=== PATIENT | female | born 1970 | race Caucasian/White ===

== ENCOUNTER 2019-04-08 00:43 | Emergency (ER) | payer MEDICAID, OTHER, SELFPAY ==
[~2019-04-08] VITALS: Ht 162.6 cm; Wt 58.0 kg
[2019-04-08] MEDS ORDERED: MORPHINE SULFATE 4 MG/ML, 1ML ONE (00:58)
[2019-04-08] MEDS ORDERED: ONDANSETRON 2MG/ML, 2ML IVPush ONE (01:00)
[2019-04-08] MEDS ORDERED: MORPHINE SULFATE 4 MG/ML, 1ML IVPush PRN (01:00)
[2019-04-08] MEDS ORDERED: ONDANSETRON 2MG/ML, 2ML ONE (01:05)
--- NOTE | 2019-04-08 01:19 | NUR ---
Break RN: patient medicated for pain and nausea. unable to get EKG and X ray at this time.
[2019-04-08 01:23] LABS: BASOPHILS # (AUTO) 0.14 x10^3/uL (0-0.1); BASOPHILS % (AUTO) 2 % (0-1); EOSINOPHILS # (AUTO) 0.37 x10^3/uL (0-0.4); EOSINOPHILS % (AUTO) 5 % (1-7); LYMPHOCYTES % (AUTO) 42 % (22-44); MD NO; MEAN CORPUSCULAR HEMOGLOBIN 30.4 pg (27.0-34.8); MEAN CORPUSCULAR HGB CONC 32.3 g/dL (32.4-35.8); MEAN CORPUSCULAR VOLUME 94.1 fL (80-100); MONOCYTES # (AUTO) 0.85 x10^3/uL (0.2-0.8); MONOCYTES % (AUTO) 10 % (2-9); NEUTROPHILS # (AUTO) 3.46 x10^3/uL (1.8-6.8); NEUTROPHILS % (AUTO) 42 % (42-75); PLATELET COUNT 310 x10^3/uL (130-400); RED BLOOD COUNT 3.86 x10^6/uL (3.82-5.3); RED CELL DISTRIBUTION WIDTH 16.6 % (9.6-15.2)
[2019-04-08] MEDS ORDERED: LORazepam 2 MG/ML, 1ML ONE (01:25)
[2019-04-08 01:29] LABS: ALBUMIN 3.4 g/dL (3.4-5.0); ANION GAP 7 mmol/L (5-15); CALCIUM 8.2 mg/dL (8.5-10.1); CHLORIDE 104 mmol/L (98-107); SALICYLATE LEVEL < 1.7 mg/dL (2.8-20.0)
[2019-04-08] MEDS ORDERED: PLEASE ENTER ALLERGIES MC SCH (01:30)
[2019-04-08] MEDS ORDERED: LORazepam 2 MG/ML, 1ML IVPush ONE (01:30)
--- NOTE | 2019-04-08 01:30 | NUR ---
patient medicated for agitation. x ray done. attempted to get EKG unsuccessful.
[2019-04-08 01:35] LABS: ALANINE AMINOTRANSFERASE 26 U/L (12-78); ALKALINE PHOSPHATASE 51 U/L (45-117); BILIRUBIN,TOTAL 0.4 mg/dL (0.2-1.0); TOTAL PROTEIN 7.3 g/dL (6.4-8.2)
--- NOTE | 2019-04-08 03:00 | NUR ---
PT PROVIDED 2 BLANKET AND OFFERED WATER. PT RESTING IN BED WITH TV ON.
[2019-04-08 04:06] LABS: AMPHETAMINE SCREEN, URINE Negative (Negative); BARBITURATE SCREEN, URINE Negative (Negative); BENZODIAZEPINE SCREEN, URINE Negative (Negative); CANNABINOID SCREEN, URINE Negative (Negative); COCAINE SCREEN, URINE Negative (Negative); METHADONE SCREEN, URINE Negative (Negative); OPIATE SCREEN, URINE Positive (Negative)
--- NOTE | 2019-04-08 04:47 | NUR ---
PT BOYFRIEND CALLED FOR PT PICKUP SO PT CAN GO HOME AND GET INTO THE HOME AT PT REQUEST, CALL WENT STRAIGHT TO VOICE MAIL. RN LEFT A MESSAGE FOR BOYFRIEND TO COME BACK TO ER OR CALL ER.
[2019-04-08 06:29] VITALS: BP 120/74
== END 2019-04-08 06:31 | disposition home or self-care (01) ==
LOC: ED 04:51
DX: F11.23 Opioid dependence with withdrawal (principal)
CPT/HCPCS: 36415; 71045; 80053; 80307; 84703; 85025; 93005; 96374; 96375; 99284; J2060; J2270; J2405

== ENCOUNTER 2019-06-27 20:00 | Emergency (ER) | payer MEDICAID ==
[~2019-06-27] VITALS: Ht 162.6 cm; Wt 57.3 kg
--- NOTE | 2019-06-27 20:08 | NUR ---
ALLERGIES: PT STATES SHES ALLERGIC TO "JUST ABOUT EVERYTHING" BUT CAN ONLY GIVE GABAPENTIN AND LATEX
--- NOTE | 2019-06-27 21:58 | NUR ---
Pt to room from lobby.
--- NOTE | 2019-06-27 22:20 | NUR ---
Pt presents to room reporting low chest pain for 2 weeks. Pt describes the pain as sharp, throbbing and radiating to her posterior ribs. Pt reports SOB with the pain and describes the SOB as difficulty taking a deep breath. Pt states the pain developed after using an Epi-pen for a reported anaphylactic reaction. Pt goes on to report Hx of frequent anaphylactic reactions and frequent use of Epi-pens.
[2019-06-27 22:47] LABS: BASOPHILS # (AUTO) 0.09 x10^3/uL (0-0.1); BASOPHILS % (AUTO) 1 % (0-1); EOSINOPHILS # (AUTO) 0.15 x10^3/uL (0-0.4); EOSINOPHILS % (AUTO) 2 % (1-7); LYMPHOCYTES % (AUTO) 18 % (22-44); MD NO; MEAN CORPUSCULAR HEMOGLOBIN 30.9 pg (27.0-34.8); MEAN CORPUSCULAR VOLUME 93.6 fL (80-100); MEAN PLATELET VOLUME 8.2 fL (7.4-10.4); MONOCYTES # (AUTO) 0.75 x10^3/uL (0.2-0.8); MONOCYTES % (AUTO) 7 % (2-9); NEUTROPHILS # (AUTO) 7.38 x10^3/uL (1.8-6.8); NEUTROPHILS % (AUTO) 73 % (42-75); PLATELET COUNT 265 x10^3/uL (130-400); RED BLOOD COUNT 3.88 x10^6/uL (3.82-5.3); RED CELL DISTRIBUTION WIDTH 13.8 % (9.6-15.2)
[2019-06-27 23:02] LABS: ALBUMIN 3.6 g/dL (3.4-5.0); ANION GAP 7 mmol/L (5-15); CALCIUM 8.5 mg/dL (8.5-10.1); CHLORIDE 104 mmol/L (98-107); CREATININE 0.67 mg/dL (0.55-1.02)
[2019-06-27] MEDS ORDERED: POTASSIUM CHLORIDE 20 MEQ PACKET ONE (23:16)
[2019-06-27] MEDS ORDERED: POTASSIUM CHLORIDE 20 MEQ PACKET PO ONE (23:30)
[2019-06-27 23:45] VITALS: BP 115/62
== END 2019-06-27 23:47 | disposition home or self-care (01) ==
LOC: ED 23:10
DX: J45.909 Unspecified asthma, uncomplicated (principal); R07.9 Chest pain, unspecified; E87.6 Hypokalemia; R00.0 Tachycardia, unspecified; I51.7 Cardiomegaly; R94.31 Abnormal electrocardiogram [ECG] [EKG]
CPT/HCPCS: 36415; 71046; 80048; 82040; 85025; 85379; 93005; 99284

== ENCOUNTER 2019-07-01 17:13 | Emergency (ER) | payer MEDICAID ==
[~2019-07-01] VITALS: Ht 165.1 cm; Wt 56.4 kg
[2019-07-01 17:18] VITALS: BP 120/72
--- NOTE | 2019-07-01 18:08 | NUR ---
pt in with C/O shortness of breath. pt states that she is complaint with medication and that she is looking for a referral in [place] outside of the hospital. She verbalized that she had some eposides of shortness of breath that scared her prompting her to seek medical attention at this time.
[2019-07-01 18:13] LABS: ALBUMIN 3.6 g/dL (3.4-5.0); ANION GAP 8 mmol/L (5-15); CALCIUM 8.2 mg/dL (8.5-10.1); CHLORIDE 104 mmol/L (98-107); CREATININE 0.69 mg/dL (0.55-1.02)
[2019-07-01 18:15] LABS: BASOPHILS # (AUTO) 0.14 x10^3/uL (0-0.1); BASOPHILS % (AUTO) 2 % (0-1); EOSINOPHILS # (AUTO) 0.31 x10^3/uL (0-0.4); EOSINOPHILS % (AUTO) 5 % (1-7); LYMPHOCYTES # (AUTO) 2.24 x10^3/uL (1-3.4); LYMPHOCYTES % (AUTO) 36 % (22-44); MD NO; MEAN CORPUSCULAR HEMOGLOBIN 30.4 pg (27.0-34.8); MEAN CORPUSCULAR HGB CONC 32.6 g/dL (32.4-35.8); MEAN CORPUSCULAR VOLUME 93.2 fL (80-100); MEAN PLATELET VOLUME 8.4 fL (7.4-10.4); MONOCYTES # (AUTO) 0.44 x10^3/uL (0.2-0.8); MONOCYTES % (AUTO) 7 % (2-9); NEUTROPHILS # (AUTO) 3.17 x10^3/uL (1.8-6.8); NEUTROPHILS % (AUTO) 50 % (42-75); PLATELET COUNT 285 x10^3/uL (130-400); RED BLOOD COUNT 3.87 x10^6/uL (3.82-5.3); RED CELL DISTRIBUTION WIDTH 13.7 % (9.6-15.2)
[2019-07-01 18:17] LABS: TROPONIN I < 0.015 ng/mL (0.000-0.045)
[2019-07-01] MEDS ORDERED: POTASSIUM CHLORIDE 20 MEQ TAB.ER.PRT ONE (18:55)
[2019-07-01] MEDS ORDERED: POTASSIUM CHLORIDE 20 MEQ TAB.ER.PRT PO ONE (19:00)
--- NOTE | 2019-07-01 19:19 | NUR ---
Patient/Caregiver given discharge instructions and they have confirmed that they understand the instructions. Perscriptions given to pt. pt verbalized understanding and that she will fill medication. Patient ambulatory with steady gait.
== END 2019-07-01 20:09 | disposition home or self-care (01) ==
LOC: ED 19:20
DX: R06.02 Shortness of breath (principal); Z00.00 Encounter for general adult medical examination without abnormal findings; J45.909 Unspecified asthma, uncomplicated
CPT/HCPCS: 36415; 80048; 82040; 84484; 85025; 93005; 99283; 99284

== ENCOUNTER 2019-07-03 15:47 | Emergency (ER) | payer MEDICAID ==
[~2019-07-03] VITALS: Ht 165.1 cm; Wt 55.5 kg
--- NOTE | 2019-07-03 16:07 | NUR ---
CALLED PT NO ANSWER
[2019-07-03 16:11] VITALS: BP 118/79
== END 2019-07-03 16:31 | disposition left against medical advice (07) ==
LOC: ED 16:25
DX: R06.00 Dyspnea, unspecified (principal); F41.9 Anxiety disorder, unspecified
CPT/HCPCS: 93005; 99283

== ENCOUNTER 2019-07-22 13:08 | Emergency (ER) | payer MEDICAID ==
[~2019-07-22] VITALS: Ht 162.6 cm; Wt 57.0 kg
[2019-07-22 13:12] VITALS: BP 130/67
--- NOTE | 2019-07-22 13:31 | NUR ---
PT HERE WITH C/O INHALER REFILL. PT STATES SHE HAS AN ANAPHYLACTIC REACTION TO "EVERYTHING" AND USED HER INHALER "A LOT THIS MONTH" AND DID NOT HAVE A REFILL.
--- NOTE | 2019-07-22 13:41 | NUR ---
Patient/Caregiver given discharge instructions and they have confirmed that they understand the instructions. Patient ambulatory with steady gait.
== END 2019-07-22 13:52 | disposition home or self-care (01) ==
LOC: ED 13:50
DX: J45.30 Mild persistent asthma, uncomplicated (principal); Z76.0 Encounter for issue of repeat prescription; J45.909 Unspecified asthma, uncomplicated
CPT/HCPCS: 99281; 99283

== ENCOUNTER 2019-08-03 20:09 | Emergency (ER) | payer MEDICAID ==
[~2019-08-03] VITALS: Ht 160 cm; Wt 55.0 kg
[2019-08-03 20:14] VITALS: BP 129/57
[2019-08-03] MEDS ORDERED: ALBUTEROL/IPRATROPIUM 2.5MG/0.5MG, 3 ML NEB ONE (21:00)
[2019-08-03 21:04] LABS: BASOPHILS # (AUTO) 0.24 x10^3/uL (0-0.1); BASOPHILS % (AUTO) 3 % (0-1); EOSINOPHILS # (AUTO) 0.42 x10^3/uL (0-0.4); EOSINOPHILS % (AUTO) 6 % (1-7); LYMPHOCYTES # (AUTO) 2.67 x10^3/uL (1-3.4); LYMPHOCYTES % (AUTO) 37 % (22-44); MD NO; MEAN CORPUSCULAR HEMOGLOBIN 30.9 pg (27.0-34.8); MEAN CORPUSCULAR HGB CONC 33.7 g/dL (32.4-35.8); MEAN CORPUSCULAR VOLUME 91.8 fL (80-100); MEAN PLATELET VOLUME 8.5 fL (7.4-10.4); MONOCYTES # (AUTO) 0.63 x10^3/uL (0.2-0.8); MONOCYTES % (AUTO) 9 % (2-9); NEUTROPHILS # (AUTO) 3.26 x10^3/uL (1.8-6.8); NEUTROPHILS % (AUTO) 45 % (42-75); PLATELET COUNT 284 x10^3/uL (130-400); RED BLOOD COUNT 3.96 x10^6/uL (3.82-5.3); RED CELL DISTRIBUTION WIDTH 14.1 % (9.6-15.2)
[2019-08-03 21:16] LABS: ANION GAP 6 mmol/L (5-15); CALCIUM 8.6 mg/dL (8.5-10.1); CHLORIDE 107 mmol/L (98-107); CREATININE 0.82 mg/dL (0.55-1.02)
[2019-08-03 21:21] LABS: TROPONIN I < 0.015 ng/mL (0.000-0.045)
[2019-08-03] MEDS ORDERED: POTASSIUM CHLORIDE 20 MEQ TAB.ER.PRT PO ONE (21:30)
[2019-08-03] MEDS ORDERED: ALBUTEROL/IPRATROPIUM 2.5MG/0.5MG, 3 ML ONE (21:31)
[2019-08-03] MEDS ORDERED: POTASSIUM CHLORIDE 20 MEQ TAB.ER.PRT ONE (21:40)
== END 2019-08-03 22:02 | disposition home or self-care (01) ==
LOC: ED 21:40
DX: J45.31 Mild persistent asthma with (acute) exacerbation (principal); R07.89 Other chest pain; R94.31 Abnormal electrocardiogram [ECG] [EKG]; Z88.8 Allergy status to other drugs, medicaments and biological substances
CPT/HCPCS: 36415; 71046; 80048; 84484; 85025; 85379; 93005; 94640; 99285; J7512

== ENCOUNTER 2019-10-05 16:16 | Emergency (ER) | payer MEDICAID ==
[~2019-10-05] VITALS: Ht 162.6 cm; Wt 55.9 kg
--- NOTE | 2019-10-05 16:25 | NUR ---
NO ANSWER IN LOBBY AT THIS TIME.
[2019-10-05 16:29] VITALS: BP 147/81
== END 2019-10-05 17:16 | disposition left against medical advice (07) ==
LOC: ED 16:30
DX: R52 Pain, unspecified (principal); Z53.21 Procedure and treatment not carried out due to patient leaving prior to being seen by health care provider

== ENCOUNTER 2019-10-07 20:33 | Emergency (ER) | payer MEDICAID ==
[~2019-10-07] VITALS: Ht 162.6 cm; Wt 56.2 kg
[2019-10-07 20:48] VITALS: BP 131/76
[2019-10-07] MEDS ORDERED: ALBUTEROL SULFATE 2.5 MG/3 ML NPPB ONE (21:30)
[2019-10-07] MEDS ORDERED: ALBUTEROL SULFATE 2.5 MG/3 ML ONE (21:45)
== END 2019-10-07 22:13 | disposition home or self-care (01) ==
LOC: ED 21:08
DX: R06.00 Dyspnea, unspecified (principal); R07.9 Chest pain, unspecified; R94.31 Abnormal electrocardiogram [ECG] [EKG]; J45.909 Unspecified asthma, uncomplicated
CPT/HCPCS: 93005; 94640; 99283; J7613

== ENCOUNTER 2019-10-12 10:00 | Emergency (ER) | payer MEDICAID ==
[~2019-10-12] VITALS: Ht 162.6 cm; Wt 54.8 kg
[2019-10-12 10:14] VITALS: BP 146/73
--- NOTE | 2019-10-12 10:22 | NUR ---
MANAGER MATERIALS MANAGEMENT: PT TO ROOM FROM [facility]
[2019-10-12] MEDS ORDERED: ALBUTEROL SULFATE 2.5 MG/3 ML ONE (10:41)
[2019-10-12] MEDS ORDERED: DEXAMETHASONE 4 MG TABLET ONE (10:42)
[2019-10-12] MEDS ORDERED: ALBUTEROL SULFATE 2.5 MG/3 ML NPPB ONE (11:00)
[2019-10-12] MEDS ORDERED: DEXAMETHASONE 4 MG TABLET PO ONE (11:00)
--- NOTE | 2019-10-12 11:15 | NUR ---
CHART UP FOR MD RECHECK.
== END 2019-10-12 11:47 | disposition home or self-care (01) ==
LOC: ED 10:30
DX: J45.31 Mild persistent asthma with (acute) exacerbation (principal); R06.02 Shortness of breath; R05 Cough; R00.0 Tachycardia, unspecified
CPT/HCPCS: 71045; 93005; 94640; 99283; J7613

== ENCOUNTER 2019-11-07 22:39 | Emergency (ER) | payer MEDICAID ==
[~2019-11-07] VITALS: Ht 162.6 cm; Wt 54.0 kg
[2019-11-07 22:52] VITALS: BP 120/78
--- NOTE | 2019-11-07 23:59 | NUR ---
PT IN ROOM SITTING ON FLOOR NEXT TO BED, SURROUNDED BY ALL OF HER BELONGINGS, FRESH HOT PINK LIPSTICK APPLIED. PT TALKING OUTLOUD TO HERSELF. MEDICATED PER MAR. PT DENIES ANY NEEDS OR CONCERNS. CALL LIGHT IN REACH.
== END 2019-11-08 00:27 | disposition home or self-care (01) ==
LOC: ED 11-08 00:20
DX: J45.31 Mild persistent asthma with (acute) exacerbation (principal); R06.02 Shortness of breath; R94.31 Abnormal electrocardiogram [ECG] [EKG]
CPT/HCPCS: 71046; 93005; 99283; J7512

== ENCOUNTER 2019-11-29 20:46 | Emergency (ER) | payer MEDICAID ==
--- NOTE | 2019-11-29 21:04 | NUR ---
NIL X1
--- NOTE | 2019-11-29 21:11 | NUR ---
NILX2
== END 2019-11-29 21:19 ==
LOC: ED 21:13
DX: R51 Headache (principal); Z53.21 Procedure and treatment not carried out due to patient leaving prior to being seen by health care provider

== ENCOUNTER 2019-11-30 23:58 | Emergency (ER) | payer MEDICAID ==
[~2019-11-30] VITALS: Ht 162.6 cm; Wt 55.2 kg
[2019-11-30 23:59] VITALS: BP 130/90
[2019-12-01] MEDS ORDERED: ALBUTEROL/IPRATROPIUM 2.5MG/0.5MG, 3 ML NPPB ONE (00:30)
[2019-12-01] MEDS ORDERED: ALBUTEROL/IPRATROPIUM 2.5MG/0.5MG, 3 ML ONE (00:37)
--- NOTE | 2019-12-01 00:45 | NUR ---
PATIENT IN ROOM ON FLOOR, WHEN ASKED WHY PATIENT STATED THAT SHE WAS LOOKING THROUGH HER STUFF AFTER "SHE" WENT THROUGH IT. PATIENT HAS FLIGHT OF IDEAS, UNABLE TO FOCUS ON SUBJECT AT HAND. PATIENT STATED THAT SHE IS HAVING BREATHING TROUBLES, NO EVIDENCE NOTED. PATIENT IS SPEAKING IN FULL SENTENCES, UNLABORED RESPIRATIONS, PULSE OX 100% ON ROOM AIR. NO NOTED ACUTE DISTRESS. BREATHING TREATMENT STARTED, PATIENT VERBALIZED UNDERSTANDING. REPORT GIVEN TO PRIMARY NURSE.
--- NOTE | 2019-12-01 00:52 | NUR ---
BREATHING TREATMENT COMPLETED, PATIENT TOLERATED WELL.
--- NOTE | 2019-12-01 01:13 | NUR ---
Discharge instructions given. All questions and concerns addressed. Patient ambulatory with a steady gait. Belongings with patient.
== END 2019-12-01 01:19 | disposition home or self-care (01) ==
LOC: ED 12-01 00:37
DX: J45.901 Unspecified asthma with (acute) exacerbation (principal); I44.7 Left bundle-branch block, unspecified
CPT/HCPCS: 93005; 94640; 99283; J7512

== ENCOUNTER 2019-12-30 18:44 | Emergency (ER) | payer MEDICAID ==
[~2019-12-30] VITALS: Ht 162.6 cm; Wt 55.9 kg
[2019-12-30 19:42] LABS: BASOPHILS % (AUTO) 2 % (0-1); EOSINOPHILS # (AUTO) 0.31 x10^3/uL (0-0.4); EOSINOPHILS % (AUTO) 5 % (1-7); LYMPHOCYTES # (AUTO) 2.19 x10^3/uL (1-3.4); LYMPHOCYTES % (AUTO) 32 % (22-44); MD NO; MEAN CORPUSCULAR HEMOGLOBIN 30.7 pg (27.0-34.8); MEAN CORPUSCULAR HGB CONC 32.9 g/dL (32.4-35.8); MEAN CORPUSCULAR VOLUME 93.3 fL (80-100); MEAN PLATELET VOLUME 8.4 fL (7.4-10.4); MONOCYTES # (AUTO) 0.64 x10^3/uL (0.2-0.8); MONOCYTES % (AUTO) 9 % (2-9); NEUTROPHILS # (AUTO) 3.71 x10^3/uL (1.8-6.8); NEUTROPHILS % (AUTO) 53 % (42-75); PLATELET COUNT 279 x10^3/uL (130-400); RED BLOOD COUNT 3.74 x10^6/uL (3.82-5.3); RED CELL DISTRIBUTION WIDTH 14.5 % (9.6-15.2)
--- NOTE | 2019-12-30 19:45 | NUR ---
PT REPORTS UNABLE TO CATCH BREATH. ALBUTEROL NOT WORKING. PLACED CARDIAC AND VITAL SIGNS MONITORS.
[2019-12-30 19:51] LABS: ALBUMIN 3.1 g/dL (3.4-5.0); ANION GAP 6 mmol/L (5-15); CALCIUM 7.9 mg/dL (8.5-10.1); CHLORIDE 104 mmol/L (98-107); CREATININE 0.69 mg/dL (0.55-1.02)
[2019-12-30 19:54] LABS: TROPONIN I < 0.015 ng/mL (0.000-0.045)
[2019-12-30] MEDS ORDERED: ALBUTEROL/IPRATROPIUM 2.5MG/0.5MG, 3 ML NEB ONE (20:00)
[2019-12-30] MEDS ORDERED: ALBUTEROL/IPRATROPIUM 2.5MG/0.5MG, 3 ML ONE (20:07)
[2019-12-30 20:12] VITALS: BP 102/52
== END 2019-12-30 20:41 | disposition home or self-care (01) ==
LOC: ED 20:39
DX: J45.31 Mild persistent asthma with (acute) exacerbation (principal); R07.89 Other chest pain; R06.00 Dyspnea, unspecified; R06.02 Shortness of breath
CPT/HCPCS: 36415; 71046; 80048; 82040; 84484; 85025; 93005; 94640; 99285; J7512

== ENCOUNTER 2020-01-11 16:25 | Emergency (ER) | payer MEDICAID ==
[~2020-01-11] VITALS: Ht 162.6 cm; Wt 55.6 kg
[2020-01-11 16:34] VITALS: BP 150/80
--- NOTE | 2020-01-11 17:21 | NUR ---
PT STATES SHE HAS TO GO BECAUSE HER SON GOT IN AN ACCIDENT. PT LEAVING WITHOUT BEING SEEING. BREATHING UNLABORED, SPEAKING IN FULL SENTECES
== END 2020-01-11 18:12 | disposition left against medical advice (07) ==
LOC: ED 16:45
DX: J45.909 Unspecified asthma, uncomplicated (principal); Z53.21 Procedure and treatment not carried out due to patient leaving prior to being seen by health care provider
CPT/HCPCS: 93005

== ENCOUNTER 2020-01-27 09:22 | Emergency (ER) | payer MEDICAID ==
[~2020-01-27] VITALS: Ht 162.6 cm; Wt 55.9 kg
[2020-01-27 09:29] VITALS: BP 123/73
[2020-01-27] MEDS ORDERED: ALBUTEROL SULFATE 2.5 MG/3 ML NPPB SCH (10:00)
== END 2020-01-27 11:10 | disposition left against medical advice (07) ==
LOC: ED 10:55
DX: J45.909 Unspecified asthma, uncomplicated (principal)
CPT/HCPCS: 99281

== ENCOUNTER 2020-02-13 22:12 | Emergency (ER) | payer MEDICAID ==
[~2020-02-13] VITALS: Ht 162.6 cm; Wt 57.0 kg
--- NOTE | 2020-02-13 22:28 | NUR ---
NIL X1
--- NOTE | 2020-02-13 22:31 | NUR ---
NILX2
[2020-02-13 22:37] VITALS: BP 132/67
== END 2020-02-13 23:34 | disposition home or self-care (01) ==
LOC: ED 23:09
DX: J45.21 Mild intermittent asthma with (acute) exacerbation (principal); R06.00 Dyspnea, unspecified; R94.31 Abnormal electrocardiogram [ECG] [EKG]; Z76.0 Encounter for issue of repeat prescription
CPT/HCPCS: 93005; 99283; J7512

== ENCOUNTER 2020-02-28 19:54 | Emergency (ER) | payer MEDICAID ==
[~2020-02-28] VITALS: Ht 162.6 cm; Wt 57.3 kg
[2020-02-28 20:42] LABS: MEAN CORPUSCULAR HEMOGLOBIN 30.4 pg (27.0-34.8); MEAN PLATELET VOLUME 8.8 fL (7.4-10.4); PLATELET COUNT 222 x10^3/uL (130-400); RED BLOOD COUNT 3.81 x10^6/uL (3.82-5.3); RED CELL DISTRIBUTION WIDTH 14.7 % (9.6-15.2)
[2020-02-28 20:44] LABS: ALBUMIN 3.2 g/dL (3.4-5.0); ANION GAP 6 mmol/L (5-15); CALCIUM 8.2 mg/dL (8.5-10.1); CHLORIDE 106 mmol/L (98-107); CREATININE 0.82 mg/dL (0.55-1.02)
[2020-02-28 21:07] LABS: HCG UR SG 1.028 (1.003-1.030)
[2020-02-28 21:09] LABS: MD YES
[2020-02-28 21:12] LABS: MICROSCOPIC INDICATED
[2020-02-28 21:15] LABS: BASOS#(MANUAL) 0.06 x10^3/uL (0-0.1); BASOS% (MANUAL) 1 % (0-1); EOS#(MANUAL) 0.45 x10^3/uL (0.0-0.4); EOS% (MANUAL) 7 % (1-7); LYMPH#(MANUAL) 2.75 x10^3/uL (1-3.4); LYMPHS% (MANUAL) 43 % (22-44); MONOS#(MANUAL) 0.45 x10^3/uL (0.3-2.7); MONOS% (MANUAL) 7 % (2-9); SEG#(MANUAL) 2.69 x10^3/uL (1.8-6.8); SEGS% (MANUAL) 42 % (42-75)
[2020-02-28 21:16] LABS: <PLATELET ESTIMATE> ADEQUATE; <PLT MORPHOLOGY> NORMAL PLT MORPH; <RBC MORPHOLOGY> NORMAL
[2020-02-28] MEDS ORDERED: POTASSIUM CHLORIDE 20 MEQ TAB.ER.PRT PO ONE (21:30)
[2020-02-28] MEDS ORDERED: DIPHENHYDRAMINE 25 MG CAPSULE PO ONE (21:30)
[2020-02-28] MEDS ORDERED: POTASSIUM CHLORIDE 20 MEQ TAB.ER.PRT ONE (21:34)
[2020-02-28] MEDS ORDERED: DIPHENHYDRAMINE 25 MG CAPSULE ONE (21:34)
[2020-02-28 21:45] VITALS: BP 118/63
== END 2020-02-28 21:47 | disposition home or self-care (01) ==
LOC: ED 20:15
DX: L24.9 Irritant contact dermatitis, unspecified cause (principal); E87.6 Hypokalemia; R06.00 Dyspnea, unspecified; R06.02 Shortness of breath; J45.909 Unspecified asthma, uncomplicated; Z76.0 Encounter for issue of repeat prescription
CPT/HCPCS: 36415; 80048; 81001; 81025; 82040; 85025; 87086; 93005; 99284; Q0163

== ENCOUNTER 2020-03-09 13:11 | Emergency (ER) | payer MEDICAID ==
[~2020-03-09] VITALS: Ht 162.6 cm; Wt 55.6 kg
[2020-03-09 13:13] VITALS: BP 125/65
== END 2020-03-09 13:59 | disposition home or self-care (01) ==
LOC: ED 13:30
DX: J45.909 Unspecified asthma, uncomplicated (principal); Z76.0 Encounter for issue of repeat prescription
CPT/HCPCS: 99281

== ENCOUNTER 2020-03-19 20:26 | Emergency (ER) | payer MEDICAID ==
[~2020-03-19] VITALS: Ht 162.6 cm; Wt 58.0 kg
[2020-03-19] MEDS ORDERED: ALBUTEROL/IPRATROPIUM 2.5MG/0.5MG, 3 ML ONE (21:16)
[2020-03-19] MEDS ORDERED: ALBUTEROL/IPRATROPIUM 2.5MG/0.5MG, 3 ML NPPB ONE (21:30)
[2020-03-19 21:34] VITALS: BP 115/68
== END 2020-03-19 22:43 | disposition home or self-care (01) ==
LOC: ED 21:24
DX: J45.41 Moderate persistent asthma with (acute) exacerbation (principal)
CPT/HCPCS: 94640; 99283

== ENCOUNTER 2020-03-23 20:38 | Emergency (ER) | payer MEDICAID ==
[~2020-03-23] VITALS: Ht 162.6 cm; Wt 57.8 kg
[2020-03-23] MEDS ORDERED: ALBUTEROL/IPRATROPIUM 2.5MG/0.5MG, 3 ML NPPB ONE (21:30)
[2020-03-23] MEDS ORDERED: ALBUTEROL SULFATE 2.5MG/0.5ML ONE (21:44)
[2020-03-23 22:31] VITALS: BP 124/76
== END 2020-03-23 22:35 | disposition home or self-care (01) ==
LOC: ED 21:10
DX: J45.41 Moderate persistent asthma with (acute) exacerbation (principal); R06.02 Shortness of breath; R94.31 Abnormal electrocardiogram [ECG] [EKG]
CPT/HCPCS: 71045; 93005; 94640; 99283; J7512

== ENCOUNTER 2020-04-18 20:34 | Emergency (ER) | payer MEDICAID ==
[~2020-04-18] VITALS: Ht 162.6 cm; Wt 57.9 kg
[2020-04-18] MEDS ORDERED: ALBUTEROL/IPRATROPIUM 2.5MG/0.5MG, 3 ML ONE (21:10)
--- NOTE | 2020-04-18 21:22 | NUR ---
Pt speaks full and complete sentences, mild-moderate exp wheezes. Hx of asthma. Md evaluation. Duoneb started, prednisone admin. Ekg done at triage. Waiting for CXR. On cont pulse-ox. Call ramos, bed low, AIDET provided. Will continue to monitor.
[2020-04-18] MEDS ORDERED: ALBUTEROL/IPRATROPIUM 2.5MG/0.5MG, 3 ML NPPB ONE (21:30)
--- NOTE | 2020-04-18 21:31 | NUR ---
Back from CXR. speaks full sentences, LS improved. Says "I feel so much better now". o2 sat 98%RA. Will continue to monitor/md re-eval.
[2020-04-18 22:14] VITALS: BP 145/78
== END 2020-04-18 22:33 | disposition home or self-care (01) ==
LOC: ED 22:16
DX: J45.41 Moderate persistent asthma with (acute) exacerbation (principal); R07.89 Other chest pain; R06.02 Shortness of breath; R06.00 Dyspnea, unspecified
CPT/HCPCS: 71046; 93005; 94640; 99283; J7512

== ENCOUNTER 2020-05-04 10:27 | Emergency (ER) | payer MEDICAID ==
[~2020-05-04] VITALS: Ht 162.6 cm; Wt 58.8 kg
[2020-05-04 10:30] VITALS: BP 129/76
--- NOTE | 2020-05-04 10:51 | NUR ---
no answer when called for room placement.
--- NOTE | 2020-05-04 11:05 | NUR ---
no answer when called for room placement.
--- NOTE | 2020-05-04 11:24 | NUR ---
No answer in lobby.
== END 2020-05-04 11:26 | disposition left against medical advice (07) ==
LOC: ED 11:20
DX: R06.02 Shortness of breath (principal); Z53.21 Procedure and treatment not carried out due to patient leaving prior to being seen by health care provider

== ENCOUNTER 2020-06-14 00:25 | Emergency (ER) | payer MEDICAID ==
[~2020-06-14] VITALS: Ht 162.6 cm; Wt 56.5 kg
--- NOTE | 2020-06-14 02:13 | NUR ---
Assist RN: patient discharged with prescriptions and instruction. verbalized understanding.
[2020-06-14 02:16] VITALS: BP 124/76
== END 2020-06-14 02:19 | disposition home or self-care (01) ==
LOC: ED 00:58
DX: J45.41 Moderate persistent asthma with (acute) exacerbation (principal); Z88.8 Allergy status to other drugs, medicaments and biological substances
CPT/HCPCS: 99283

== ENCOUNTER 2020-06-14 18:42 | Emergency (ER) | payer MEDICAID ==
[~2020-06-14] VITALS: Ht 162.6 cm; Wt 56.8 kg
--- NOTE | 2020-06-14 18:46 | NUR ---
CALLED, NIL, SCREENER STATES PT IN BR.
--- NOTE | 2020-06-14 19:24 | NUR ---
PT AMBULATES FROM LOBBY TO ROOM WITH STEADY GAIT. PT PROVIDED GOWN AND VERBALIZES UNDERSTANDING OF ER PROCESS.
--- NOTE | 2020-06-14 19:34 | NUR ---
PT PLACED IN [facility]. PT CHANGED INTO GOWN AND ATTACHED TO ALL VS MONITORS. VSS AT THIS TIME. PT HAS CALL LIGHT WITHIN REACH. AWAITING ERP AT THIS TIME.
--- NOTE | 2020-06-14 20:23 | NUR ---
DR MALDONADO AT BS WITH PT AT THIS TIME.
[2020-06-14] MEDS ORDERED: ALBUTEROL SULFATE 2.5MG/0.5ML ONE (20:46)
[2020-06-14] MEDS ORDERED: TRIAMCINOLONE CRM 0.1%, 15GM TP ONE (20:56)
[2020-06-14] MEDS ORDERED: ALBUTEROL/IPRATROPIUM 2.5MG/0.5MG, 3 ML NPPB PRN (21:00)
[2020-06-14] MEDS ORDERED: ALBUTEROL SULFATE 2.5 MG/3 ML NPPB ONE (21:00)
[2020-06-14] MEDS ORDERED: TRIAMCINOLONE ACETONIDE 40 MG/ML, 1ML IM ONE (21:31)
[2020-06-14] MEDS ORDERED: ONDANSETRON ODT 4 MG ONE (21:37)
--- NOTE | 2020-06-14 21:38 | NUR ---
Pt noted to be standing at bedside, vomiting small amount into the trashcan. ERP notified, verbal orders received and administered. Pt denies any further needs or concerns at this time. Call light in reach.
[2020-06-14] MEDS ORDERED: ONDANSETRON ODT 4 MG PO ONE (22:00)
--- NOTE | 2020-06-14 22:14 | NUR ---
pt medicated per mar. awaiting d/c summary at this time. pt vss at this time and updated in emr.
[2020-06-14 22:15] VITALS: BP 128/77
--- NOTE | 2020-06-14 22:43 | NUR ---
pt d/c with d/c summary and scripts. all questions answered. pt ambulates to registration desk with steady gait for d/c home. pt denies any other needs pertaining to this visit.
== END 2020-06-14 22:46 | disposition home or self-care (01) ==
LOC: ED 21:33
DX: L20.9 Atopic dermatitis, unspecified (principal); Z20.822 Contact with and (suspected) exposure to COVID-19; J45.901 Unspecified asthma with (acute) exacerbation; R06.02 Shortness of breath; R06.00 Dyspnea, unspecified; R21 Rash and other nonspecific skin eruption
CPT/HCPCS: 87635; 93005; 94640; 96372; 99284; J3301; J7613; Q0162

== ENCOUNTER 2020-07-24 17:39 | Emergency (ER) | payer MEDICAID ==
[~2020-07-24] VITALS: Ht 162.6 cm; Wt 55.9 kg
--- NOTE | 2020-07-24 18:34 | NUR ---
SENIOR MARKET RESEARCH ANALYST: PT PIT BY AT THIS TIME. PT RETURNED TO LOBBY W/O INCIDENT. RESP EVEN AND UNLABORED, BIA.
[2020-07-24 18:53] VITALS: BP 131/54
--- NOTE | 2020-07-24 18:54 | NUR ---
Patient given discharge instructions and they have confirmed that they understand the instructions. Patient ambulatory with steady gait. VSS.
== END 2020-07-24 18:56 | disposition home or self-care (01) ==
LOC: ED 18:50
DX: J45.909 Unspecified asthma, uncomplicated (principal); L30.9 Dermatitis, unspecified
CPT/HCPCS: 99283

== ENCOUNTER 2020-07-30 01:01 | Emergency (ER) | payer MEDICAID ==
[~2020-07-30] VITALS: Ht 162.6 cm; Wt 54.9 kg
--- NOTE | 2020-07-30 01:18 | NUR ---
PT REPORTS COMING INTO ED TONIGHT TO GET LEFT HAND LOOK AT, PT SAYS IT GOT HIT ON SOMETHING AND STATES, "I NEED A BREATHING TREATMENT". PT LEFT HAND APPEARS SWOLEN, CMS INTACT, NO OBVIOUS DEFORMITIES NOTED. PT RESTING ON GURNEY, NAD, BED IN LOWEST, RAILS ENGAGED, CALL LIGHT ON LAP, PROVIDED WARM BLANKETS FOR COMFORT, WCTM. VANGIE TOLBERT AT BS FOR EVAL AND POC.
[2020-07-30] MEDS ORDERED: ALBUTEROL/IPRATROPIUM 2.5MG/0.5MG, 3 ML NPPB ONE (01:30)
[2020-07-30] MEDS ORDERED: ALBUTEROL/IPRATROPIUM 2.5MG/0.5MG, 3 ML ONE (01:46)
[2020-07-30 02:23] VITALS: BP 123/71
--- NOTE | 2020-07-30 02:25 | NUR ---
pt resting on gurney, nad, appears comfortable, bed in lowest, rails engaged, waiting for rad read. wctm.
--- NOTE | 2020-07-30 02:48 | NUR ---
Patient given discharge instructions and they have confirmed that they understand the instructions. Patient ambulatory with steady gait. NAD, DENIES ADDITIONAL QUESTIONS OR NEEDS AT THIS TIME. NO PERSONAL BELONGINGS LEFT IN ROOM AFTER DC.
== END 2020-07-30 02:57 | disposition home or self-care (01) ==
LOC: ED 02:56
DX: G89.11 Acute pain due to trauma (principal); M79.642 Pain in left hand; J45.41 Moderate persistent asthma with (acute) exacerbation; R06.02 Shortness of breath; R06.00 Dyspnea, unspecified; L03.114 Cellulitis of left upper limb; Z88.8 Allergy status to other drugs, medicaments and biological substances
CPT/HCPCS: 94640; 99283

== ENCOUNTER 2020-08-04 21:29 | Emergency (ER) | payer MEDICAID ==
[~2020-08-04] VITALS: Ht 162.6 cm; Wt 56.0 kg
--- NOTE | 2020-08-04 21:33 | NUR ---
MAURAX1
[2020-08-04 21:35] VITALS: BP 101/75
[2020-08-04 22:35] LABS: BASOPHILS % (AUTO) 1 % (0-1); EOSINOPHILS % (AUTO) 10 % (1-7); LYMPHOCYTES % (AUTO) 40 % (22-44); MEAN CORPUSCULAR HGB CONC 33.2 g/dL (32.4-35.8); MEAN PLATELET VOLUME 8.8 fL (7.4-10.4); MONOCYTES % (AUTO) 8 % (2-9); NEUTROPHILS % (AUTO) 40 % (42-75); PLATELET COUNT 266 x10^3/uL (130-400); RED BLOOD COUNT 3.61 x10^6/uL (3.82-5.3); RED CELL DISTRIBUTION WIDTH 14.8 % (9.6-15.2)
[2020-08-04 22:36] LABS: MD NO
[2020-08-04 22:45] LABS: ANION GAP 5 mmol/L (5-15); CHLORIDE 107 mmol/L (98-107); CREATININE 0.82 mg/dL (0.55-1.02)
== END 2020-08-04 23:28 | disposition home or self-care (01) ==
LOC: ED 22:58
DX: L25.9 Unspecified contact dermatitis, unspecified cause (principal); J45.909 Unspecified asthma, uncomplicated
CPT/HCPCS: 36415; 80048; 85025; 99283

== ENCOUNTER 2020-08-06 13:34 | Emergency (ER) | payer MEDICAID ==
[~2020-08-06] VITALS: Ht 162.6 cm; Wt 55.0 kg
[2020-08-06 13:36] VITALS: BP 115/89
--- NOTE | 2020-08-06 13:51 | NUR ---
PT HAS MULTIPLE COMPLAINTS. TALKING TO SELF IN HER ROOM. CALLS SOMEONE TO COME PICK HER UP THEN COMES TO NURSES STATION SAYING HER CHILD FELL AND SHE HAS TO GO HOME. PT ELOPED BY THE TIME I CAME BACK WITH PAPERWORK.
== END 2020-08-06 13:54 | disposition left against medical advice (07) ==
LOC: ED 13:40
DX: R06.02 Shortness of breath (principal); J45.909 Unspecified asthma, uncomplicated; Z53.21 Procedure and treatment not carried out due to patient leaving prior to being seen by health care provider

== ENCOUNTER 2020-08-12 20:36 | Emergency (ER) | payer MEDICAID ==
[~2020-08-12] VITALS: Ht 162.6 cm; Wt 55.8 kg
--- NOTE | 2020-08-12 21:16 | NUR ---
PT BIB SELF VIA POV. PER PT SHE HAS ASTHMA. PT STATES "I HAVE NEB TREATMENTS AND INHALERS AT HOME, BUT I DON'T HAVE PREDNISONE. WHEN I GO OFF PREDNISONE I START TO WHEEZE AGAIN." PT RESTING IN [facility], MONITORING IN PLACE, BIA AT THIS TIME, [place].
[2020-08-12] MEDS ORDERED: ALBUTEROL SULFATE 2.5 MG/3 ML NPPB ONE (21:30)
[2020-08-12] MEDS ORDERED: ALBUTEROL/IPRATROPIUM 2.5MG/0.5MG, 3 ML ONE (21:31)
[2020-08-12] MEDS ORDERED: ALBUTEROL SULFATE 2.5 MG/3 ML ONE (21:34)
[2020-08-12 21:38] VITALS: BP 125/74
== END 2020-08-12 22:42 | disposition home or self-care (01) ==
LOC: ED 21:40
DX: J45.31 Mild persistent asthma with (acute) exacerbation (principal)
CPT/HCPCS: 94640; 99283; J7512; J7613

== ENCOUNTER 2020-08-27 16:38 | Emergency (ER) | payer MEDICAID ==
[~2020-08-27] VITALS: Ht 162.6 cm; Wt 54.7 kg
[2020-08-27 17:01] VITALS: BP 126/65
[2020-08-27] MEDS ORDERED: ALBUTEROL SULFATE 2.5 MG/3 ML NPPB ONE (17:30)
[2020-08-27] MEDS ORDERED: ALBUTEROL SULFATE 2.5 MG/3 ML ONE (17:37)
--- NOTE | 2020-08-27 17:43 | NUR ---
SOBX2 DAYS, NO RELIEF W/ INHALERS, PREDNISONE OR BREATHING TX. PT CONVERSING IN FULL SENTENCES W/O DIFFICULTY. GOOD BREATH SOUNDS TO BASES BILATERALLY; HOWEVER, SLIGHT EXPIRATORY WHEEZE POX 99% MEDICATED PER EMAR
--- NOTE | 2020-08-27 17:59 | NUR ---
POST NEB NO WHEEZE APPRECIATED. PATIENT REPORTS " YEAH YOU'RE NEBULIZER IS WAY BETTER THAN MINE AT HOME. I'M ALL THE WAY BETTER."
== END 2020-08-27 18:02 | disposition home or self-care (01) ==
LOC: ED 18:01
DX: J45.31 Mild persistent asthma with (acute) exacerbation (principal); R06.02 Shortness of breath; E87.6 Hypokalemia
CPT/HCPCS: 94640; 99283; J7512; J7613

== ENCOUNTER 2020-09-01 20:48 | Emergency (ER) | payer MEDICAID ==
[~2020-09-01] VITALS: Ht 162.6 cm; Wt 50.0 kg
[2020-09-01 21:01] VITALS: BP 118/64
--- NOTE | 2020-09-01 21:05 | NUR ---
INTERNET SPECIALIST: NO EKG PER JUSTA MONTANEZ
[2020-09-01] MEDS ORDERED: ALBUTEROL/IPRATROPIUM 2.5MG/0.5MG, 3 ML NPPB ONE (21:30)
== END 2020-09-01 23:10 | disposition left against medical advice (07) ==
LOC: ED 21:00
DX: J45.901 Unspecified asthma with (acute) exacerbation (principal); R94.31 Abnormal electrocardiogram [ECG] [EKG]
CPT/HCPCS: 71045; 93005; 99283

== ENCOUNTER 2020-09-15 13:44 | Emergency (ER) | payer MEDICAID ==
[~2020-09-15] VITALS: Ht 162.6 cm; Wt 56.1 kg
[2020-09-15 13:49] VITALS: BP 129/90
--- NOTE | 2020-09-15 14:11 | NUR ---
THIS IS A 49 YEAR OLD FEMALE WHO STATES, "I HAVE ASTHMA, THIS IS AN EXACCERBATION, IT'S BEEN ABOUT 5 DAYS, MY FACE GETS SWOLLEN AND LOOKS LIKE IT IS BURNED, I HAD TO USE MY EPI PEN 5 DAYS AGO, I GET ANAPHYLATIC SHOCK. I'M ALLERGIC TO EVERYTHING, I SEE DOCTORS, THE RASH ON MY FACE IS SO BAD RIGHT NOW." DENIES CP, SOB.
[2020-09-15] MEDS ORDERED: EPI (14:23)
[2020-09-15] MEDS ORDERED: ALBU0.63 NEB (14:23)
[2020-09-15] MEDS ORDERED: ALBUTEROL/IPRATROPIUM 2.5MG/0.5MG, 3 ML ONE (14:24)
[2020-09-15] MEDS ORDERED: ALBUTEROL/IPRATROPIUM 2.5MG/0.5MG, 3 ML NPPB ONE (14:30)
== END 2020-09-15 15:09 | disposition home or self-care (01) ==
LOC: ED 14:14
DX: J45.901 Unspecified asthma with (acute) exacerbation (principal)
CPT/HCPCS: 94640; 99283; J7512

== ENCOUNTER 2020-09-23 17:17 | Emergency (ER) | payer MEDICAID ==
[~2020-09-23] VITALS: Ht 162.6 cm; Wt 50.0 kg
[~2020-09-23 17:17] MED LIST: ALBU0.63 NEB; EPI
[2020-09-23 17:50] VITALS: BP 118/76
[2020-09-23] MEDS ORDERED: PROMETHAZINE 25 MG/ML, 1ML IM ONE (19:00)
[2020-09-23] MEDS ORDERED: ALBUTEROL/IPRATROPIUM 2.5MG/0.5MG, 3 ML NPPB ONE (19:00)
[2020-09-23] MEDS ORDERED: ALBUTEROL/IPRATROPIUM 2.5MG/0.5MG, 3 ML ONE (19:18)
[2020-09-23] MEDS ORDERED: PROMETHAZINE 25 MG/ML, 1ML ONE (19:18)
--- NOTE | 2020-09-23 19:29 | NUR ---
pt medicated per mar
== END 2020-09-23 20:15 | disposition home or self-care (01) ==
LOC: ED 18:51
DX: L30.9 Dermatitis, unspecified (principal); R51.9 Headache, unspecified; R06.00 Dyspnea, unspecified; E87.6 Hypokalemia; R06.02 Shortness of breath; J45.909 Unspecified asthma, uncomplicated
CPT/HCPCS: 94640; 96372; 99283; J2550; 96374

== ENCOUNTER 2020-09-28 20:44 | Emergency (ER) | payer MEDICAID ==
--- NOTE | 2020-09-28 20:52 | NUR ---
PT STATES RECENT CHANGES IN MEDS, TOLD NOT TO USE INHAILER. PT IS 100%RA. STATES SHE DOES NOT WANT TO BE SEEN NOW. SHE WILL CALL PALPANOLOGIST.
== END 2020-09-28 21:01 ==
LOC: ED 21:00
DX: Z79.51 Long term (current) use of inhaled steroids (principal); Z53.21 Procedure and treatment not carried out due to patient leaving prior to being seen by health care provider

== ENCOUNTER 2020-10-01 00:19 | Emergency (ER) | payer MEDICAID ==
[~2020-10-01] VITALS: Ht 162.6 cm; Wt 56.9 kg
[2020-10-01 00:25] VITALS: BP 142/92
[2020-10-01] MEDS ORDERED: DIPHENHYDRAMINE 25 MG CAPSULE PO ONE (01:00)
== END 2020-10-01 01:08 | disposition home or self-care (01) ==
LOC: ED 00:45
DX: J45.30 Mild persistent asthma, uncomplicated (principal)
CPT/HCPCS: 99283

== ENCOUNTER 2020-10-07 08:02 | Emergency (ER) | payer MEDICAID ==
[~2020-10-07] VITALS: Ht 162.6 cm; Wt 56.5 kg
--- NOTE | 2020-10-07 08:23 | NUR ---
INTERMITTENT LOSS OF VISION MOSTLY AFTER WAKING UP. PT THINKS ITS RELATED TO HER ANGIO EDEMA. PT STATES AFTER SHE WAKES UP EYES ARE BURNING AND SWOLLEN SHUT AND SHE HAS BLURRY VISION THAT COMES AND GOES THROUGHOUT DAY.
--- NOTE | 2020-10-07 08:28 | NUR ---
PT DENIES HEAD TRAUMA AND PERRLA
--- NOTE | 2020-10-07 08:38 | NUR ---
PT TO BATHROOM WITH STEADY GAIT.
--- NOTE | 2020-10-07 08:43 | NUR ---
PT BACK TO BED. ATTACHED TO MONITORS. POSTIONED TO COMFORT. BIA HUMPHRIESS.
--- NOTE | 2020-10-07 09:14 | NUR ---
DR. HIRSCH TO BEDSIDE FOR EVALUATION. VSS. AMEZQUITA.
[2020-10-07 09:15] VITALS: BP 122/101
--- NOTE | 2020-10-07 09:42 | NUR ---
Patient/Caregiver given discharge instructions and they have confirmed that they understand the instructions. Patient ambulatory with steady gait.
== END 2020-10-07 09:43 | disposition home or self-care (01) ==
LOC: ED 08:30
DX: H10.213 Acute toxic conjunctivitis, bilateral (principal); J45.909 Unspecified asthma, uncomplicated
CPT/HCPCS: 99282

== ENCOUNTER 2020-10-09 22:43 | Emergency (ER) | payer MEDICAID ==
[~2020-10-09] VITALS: Ht 162.6 cm; Wt 57.6 kg
[2020-10-09 22:45] VITALS: BP 117/76
--- NOTE | 2020-10-09 23:14 | NUR ---
SAME TRIAGE NOTE. PT C/O SOB X5 DAYS. LUNG SOUNDS CLEAR. 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 VSS. PT STATES, "I JUST WANTED TO CHECK THAT I'M GETTING ENOUGH AIR AND MY VITALS ARE STABLE."
--- NOTE | 2020-10-09 23:23 | NUR ---
ERP AT NOW.
[2020-10-09] MEDS ORDERED: ALBUTEROL/IPRATROPIUM 2.5MG/0.5MG, 3 ML NPPB ONE (23:30)
[2020-10-09] MEDS ORDERED: ALBUTEROL/IPRATROPIUM 2.5MG/0.5MG, 3 ML ONE (23:36)
--- NOTE | 2020-10-09 23:40 | NUR ---
PT MEDICATED PER ORDERS. NO OTHER NEEDS AT THIS TIME.
--- NOTE | 2020-10-10 00:06 | NUR ---
PT STATES SHE FEELS MUCH BETTER AFTER BREATHING TX. D/C INSTRUCTIONS, MEDS & F/U APPT RV'WD WITH PT. RX GIVEN X1. AMBULATED OUT OF ED WITHOUT DIFFICULTY.
== END 2020-10-10 00:07 | disposition home or self-care (01) ==
LOC: ED 10-10
DX: J45.31 Mild persistent asthma with (acute) exacerbation (principal)
CPT/HCPCS: 93005; 94640; 99283; J7512

== ENCOUNTER 2020-10-14 14:45 | Emergency (ER) | payer MEDICAID ==
[~2020-10-14] VITALS: Ht 162.6 cm; Wt 56.0 kg
[2020-10-14 14:57] VITALS: BP 132/88
[2020-10-14] MEDS ORDERED: ALBUTEROL/IPRATROPIUM 2.5MG/0.5MG, 3 ML NPPB SCH (15:30)
[2020-10-14] MEDS ORDERED: ALBUTEROL/IPRATROPIUM 2.5MG/0.5MG, 3 ML ONE (16:43)
--- NOTE | 2020-10-14 16:45 | NUR ---
medicated with duoneb nebulizer for wheezing to all chong at 07/30 & for headache at 12/30 ERP to bedside for assess-to medicate and d/c
[2020-10-14] MEDS ORDERED: KETOROLAC 30 MG/1 ML ONE (16:48)
[2020-10-14] MEDS ORDERED: KETOROLAC 30 MG/1 ML IM ONE (17:00)
--- NOTE | 2020-10-14 17:15 | NUR ---
WITH REASSESSMENT WHEEZING GREATLY IMPROVED/HEADACHE TO 3/10 PROVIDED WITH D/C PAPERWORK AND WALKED OUT
== END 2020-10-14 17:38 | disposition home or self-care (01) ==
LOC: ED 17:08
DX: G44.211 Episodic tension-type headache, intractable (principal); J45.909 Unspecified asthma, uncomplicated; R11.0 Nausea
CPT/HCPCS: 70450; 71045; 94640; 96372; 99284; J1885

== ENCOUNTER 2020-10-15 21:37 | Emergency (ER) | payer MEDICAID ==
[~2020-10-15] VITALS: Ht 162.6 cm; Wt 57.9 kg
[2020-10-15 21:40] VITALS: BP 113/71
== END 2020-10-15 22:51 | disposition home or self-care (01) ==
LOC: ED 21:55
DX: J45.31 Mild persistent asthma with (acute) exacerbation (principal); R06.00 Dyspnea, unspecified
CPT/HCPCS: 99283

== ENCOUNTER 2020-10-17 21:42 | Emergency (ER) | payer MEDICAID ==
[~2020-10-17] VITALS: Ht 162.6 cm; Wt 57.2 kg
[2020-10-17 21:49] VITALS: BP 128/81
== END 2020-10-17 22:24 | disposition left against medical advice (07) ==
LOC: ED 22:00
DX: T78.40XA Allergy, unspecified, initial encounter (principal); J45.909 Unspecified asthma, uncomplicated; Z53.21 Procedure and treatment not carried out due to patient leaving prior to being seen by health care provider; X58.XXXA Exposure to other specified factors, initial encounter

== ENCOUNTER 2020-10-20 03:07 | Emergency (ER) | payer MEDICAID ==
[~2020-10-20] VITALS: Ht 162.6 cm; Wt 55.9 kg
--- NOTE | 2020-10-20 03:46 | NUR ---
PT STATES THAT SHE HAS A RASH AND PAIN IN HER EYES AND NECK AND A HEADACHE 10/10 PAIN SHE STATES SHE TAKES 7MG OF OXYCODONE A DAY FOR PAIN AND SHE TOOK 10MG AT 0230 AND THE PAIN HAS NOT GONE AWAY. SHE SAYS HER MAIN REASON FOR COMING IN IS THAT SHE IS AFRAID SHE IS GOING TO GO ANAPHALACTIC AND SHE DOESN'T HAVE AND EPI-PEN AND SHE NEEDS ONE JUST IN CASE. RAILS UP X 2 ON BED. CALL REMOTE WITHIN REACH.
--- NOTE | 2020-10-20 04:51 | NUR ---
PT RESTING IN BED. VSS. [facility] RAILS UPX 2. CALL REMOTE WITHIN REACH.
--- NOTE | 2020-10-20 05:29 | NUR ---
Patient given discharge instructions and they have confirmed that they understand the instructions. Patient ambulatory with steady gait. No questions at time of discharge.
[2020-10-20 05:31] VITALS: BP 115/75
== END 2020-10-20 05:33 | disposition home or self-care (01) ==
LOC: ED 04:48
DX: T78.3XXA Angioneurotic edema, initial encounter (principal); Z76.0 Encounter for issue of repeat prescription
CPT/HCPCS: 99281

== ENCOUNTER 2020-10-27 07:26 | Emergency (ER) | payer MEDICAID ==
[~2020-10-27] VITALS: Ht 162.6 cm; Wt 55.2 kg
[2020-10-27] MEDS ORDERED: OXYCODONE PO (07:58)
--- NOTE | 2020-10-27 08:00 | NUR ---
PT WITH SWELLING AND ERRYTHEMA TO FACE, SEEN AT [facility] FOR SAME LAST NIGHT. ON CLINDAMYCIN. CALL LIGHT W/I REACH.
[2020-10-27 08:53] LABS: BASOPHILS % (AUTO) 1 % (0-1); EOSINOPHILS % (AUTO) 7 % (1-7); LYMPHOCYTES % (AUTO) 32 % (22-44); MEAN CORPUSCULAR HEMOGLOBIN 31.6 pg (27.0-34.8); MEAN CORPUSCULAR HGB CONC 33.6 g/dL (32.4-35.8); MEAN PLATELET VOLUME 8.8 fL (7.4-10.4); MONOCYTES % (AUTO) 7 % (2-9); NEUTROPHILS % (AUTO) 54 % (42-75); PLATELET COUNT 255 x10^3/uL (130-400); RED BLOOD COUNT 4.02 x10^6/uL (3.82-5.3); RED CELL DISTRIBUTION WIDTH 14.3 % (9.6-15.2)
[2020-10-27] MEDS ORDERED: DEXAMETHASONE 4 MG TABLET ONE (09:23)
[2020-10-27] MEDS ORDERED: DEXAMETHASONE 4 MG TABLET PO ONE (09:30)
[2020-10-27 09:40] VITALS: BP 110/84
--- NOTE | 2020-10-27 09:41 | NUR ---
Patient/Caregiver given discharge instructions and they have confirmed that they understand the instructions. Patient ambulatory with steady gait. NAD, all questions answered appropriately, denies additional needs at this time. No personal belongings left in room after discharge.
== END 2020-10-27 09:42 | disposition home or self-care (01) ==
LOC: ED 07:44
DX: L03.211 Cellulitis of face (principal); J45.909 Unspecified asthma, uncomplicated
CPT/HCPCS: 36415; 85025; 99283

== ENCOUNTER 2020-11-04 20:47 | Emergency (ER) | payer MEDICAID ==
[~2020-11-04] VITALS: Ht 162.6 cm; Wt 58.2 kg
[~2020-11-04 20:47] MED LIST changes: +OXYCODONE PO
[2020-11-04 20:52] VITALS: BP 128/90
--- NOTE | 2020-11-04 21:15 | NUR ---
CALLED IN THE LOBBY, NO ANSWER @ [phone]
--- NOTE | 2020-11-04 21:25 | NUR ---
PER REGISTRATION, PATIENT LEFT THE HOSPITAL.
== END 2020-11-04 21:29 | disposition left against medical advice (07) ==
LOC: ED 21:00
DX: R06.02 Shortness of breath (principal); Z53.21 Procedure and treatment not carried out due to patient leaving prior to being seen by health care provider

== ENCOUNTER 2020-11-07 00:33 | Emergency (ER) | payer MEDICAID ==
[~2020-11-07] VITALS: Ht 162.6 cm; Wt 56.0 kg
[2020-11-07 00:37] VITALS: BP 117/84
--- NOTE | 2020-11-07 00:59 | NUR ---
PT SIGNED OUT FROM GWENDOLYN LERMA
== END 2020-11-07 01:02 | disposition left against medical advice (07) ==
LOC: ED 00:45
DX: J45.909 Unspecified asthma, uncomplicated (principal); Z53.21 Procedure and treatment not carried out due to patient leaving prior to being seen by health care provider

== ENCOUNTER 2020-11-07 20:21 | Emergency (ER) | payer MEDICAID ==
[~2020-11-07] VITALS: Ht 162.6 cm; Wt 56.8 kg
[2020-11-07 20:30] VITALS: BP 131/96
--- NOTE | 2020-11-07 20:35 | NUR ---
PA TO SEE IN TRIAGE
--- NOTE | 2020-11-07 20:42 | NUR ---
Patient/Caregiver given discharge instructions and they have confirmed that they understand the instructions. Patient ambulatory with steady gait.
== END 2020-11-08 20:43 | disposition home or self-care (01) ==
LOC: ED 20:37
DX: J45.909 Unspecified asthma, uncomplicated (principal); Z76.0 Encounter for issue of repeat prescription
CPT/HCPCS: 99281

== ENCOUNTER 2020-11-13 16:19 | Emergency (ER) | payer MEDICAID ==
--- NOTE | 2020-11-13 16:34 | NUR ---
CALL X1 NOT IN LOBBY
--- NOTE | 2020-11-13 16:39 | NUR ---
CALL X2 NOT IN LOBBY
--- NOTE | 2020-11-13 17:21 | NUR ---
CALL X3 NOT IN LOBBY
== END 2020-11-13 17:23 | disposition left against medical advice (07) ==
LOC: ED 17:15
DX: R68.89 Other general symptoms and signs (principal); Z53.21 Procedure and treatment not carried out due to patient leaving prior to being seen by health care provider
CPT/HCPCS: 99283; 99285

== ENCOUNTER 2020-11-14 20:13 | Emergency (ER) | payer MEDICAID ==
[~2020-11-14] VITALS: Ht 162.6 cm; Wt 56.5 kg
[2020-11-14 20:18] VITALS: BP 140/81
--- NOTE | 2020-11-14 23:17 | NUR ---
PT NOT IN LOBBY WHEN CALLED FOR ROOM.
--- NOTE | 2020-11-14 23:33 | NUR ---
PT NOT IN LOBBY WHEN CALLED FOR ROOM.
--- NOTE | 2020-11-14 23:59 | NUR ---
PT NOT IN LOBBY WHEN CALLED FOR ROOM X 3.
== END 2020-11-15 00:01 | disposition left against medical advice (07) ==
LOC: ED 20:43
DX: J45.909 Unspecified asthma, uncomplicated (principal)
CPT/HCPCS: 99281

== ENCOUNTER 2020-11-20 18:38 | Emergency (ER) | payer MEDICAID ==
[~2020-11-20] VITALS: Ht 162.6 cm; Wt 55.5 kg
--- NOTE | 2020-11-20 20:08 | NUR ---
Pt walking up and down hallway, NAD, RR equal and unlabored, speaks full complete sentences o2 sat 99% RA. Pt is asking for refills of albuterol.
[2020-11-20 20:18] VITALS: BP 132/74
== END 2020-11-20 21:03 | disposition home or self-care (01) ==
LOC: ED 20:20
DX: R06.00 Dyspnea, unspecified (principal); G89.29 Other chronic pain; R00.0 Tachycardia, unspecified; J45.909 Unspecified asthma, uncomplicated
CPT/HCPCS: 99281

== ENCOUNTER 2020-11-27 07:28 | Emergency (ER) | payer MEDICAID ==
[~2020-11-27] VITALS: Ht 162.6 cm; Wt 54.3 kg
--- NOTE | 2020-11-27 08:02 | NUR ---
COAT REPAIR INSPECTOR: PT TO ROOM FROM [facility]ER[facility]
[2020-11-27 08:14] VITALS: BP 130/85
--- NOTE | 2020-11-27 08:15 | NUR ---
INITAL CONTACT: "I HAVE NATHAN ALL OVER MY BODY", "ITS ANAPHYLAXIS". "I NEED TO BE CHECKED AGAIN, SOME ANTIBIOTICS, CREAM, AND LABWORK". N/V, PAIN TO ENTIRE BODY. SEEN AT HOSPITAL TWICE LAST NIGHT FOR SAME. PT ATTACHED TO MONITORS. VSS. NADN. PT RESTING IN BED. DR. PICKETT TO BEDSIDE FOR EVALUATION
--- NOTE | 2020-11-27 08:40 | NUR ---
Patient given discharge instructions and they have confirmed that they understand the instructions. Patient ambulatory with steady gait. NAD, all questions answered appropriately, denies additional needs at this time. No personal belongings left in room after discharge.
== END 2020-11-27 08:41 | disposition home or self-care (01) ==
LOC: ED 07:37
DX: L50.0 Allergic urticaria (principal)
CPT/HCPCS: 99282

== ENCOUNTER 2020-11-30 20:40 | Emergency (ER) | payer MEDICAID ==
[~2020-11-30] VITALS: Ht 162.6 cm; Wt 55.8 kg
[2020-11-30 20:47] VITALS: BP 102/79
--- NOTE | 2020-11-30 20:55 | NUR ---
EKG DONE IN TRIAGE
[2020-11-30 21:32] LABS: BASOPHILS % (AUTO) 2 % (0-1); EOSINOPHILS % (AUTO) 4 % (1-7); LYMPHOCYTES % (AUTO) 27 % (22-44); MEAN CORPUSCULAR HEMOGLOBIN 31.7 pg (27.0-34.8); MEAN CORPUSCULAR HGB CONC 33.2 g/dL (32.4-35.8); MEAN PLATELET VOLUME 8.4 fL (7.4-10.4); MONOCYTES % (AUTO) 7 % (2-9); NEUTROPHILS % (AUTO) 60 % (42-75); PLATELET COUNT 286 x10^3/uL (130-400); RED CELL DISTRIBUTION WIDTH 14.9 % (9.6-15.2)
[2020-11-30 21:44] LABS: ALANINE AMINOTRANSFERASE 47 U/L (12-78); ALBUMIN 3.5 g/dL (3.4-5.0); ANION GAP 3 mmol/L (5-15); CALCIUM 8.2 mg/dL (8.5-10.1); CHLORIDE 102 mmol/L (98-107); CREATININE 0.93 mg/dL (0.55-1.02)
[2020-11-30 21:48] LABS: ALKALINE PHOSPHATASE 55 U/L (45-117); BILIRUBIN,TOTAL 0.2 mg/dL (0.2-1.0); TOTAL PROTEIN 7.2 g/dL (6.4-8.2)
[2020-11-30] MEDS ORDERED: LIDOCAINE 4% CREAM 15GM TUBE TP ONE (23:30)
[2020-11-30] MEDS ORDERED: KETOROLAC 30 MG/1 ML IM ONE (23:30)
== END 2020-12-01 00:43 | disposition home or self-care (01) ==
LOC: ED 22:00
DX: R21 Rash and other nonspecific skin eruption (principal); J45.909 Unspecified asthma, uncomplicated; R94.31 Abnormal electrocardiogram [ECG] [EKG]
CPT/HCPCS: 36415; 71046; 80053; 83880; 85025; 93005; 99285

== ENCOUNTER 2020-12-07 06:17 | Emergency (ER) | payer MEDICAID ==
[~2020-12-07] VITALS: Ht 162.6 cm; Wt 56.1 kg
[2020-12-07 06:20] VITALS: BP 145/85
--- NOTE | 2020-12-07 06:54 | NUR ---
PT AMBULATED TO RESTROOM THEN WALKED TO NURSES STATION AND STATED SHE NEEDS TO LEAVE, AND REFUSED CARE AT THIS TIME. PT IS STEADY AMBULATING, SPEAKING IN FULL SENTENCES.
== END 2020-12-07 06:57 | disposition left against medical advice (07) ==
LOC: ED 06:30
DX: J45.909 Unspecified asthma, uncomplicated (principal); R94.31 Abnormal electrocardiogram [ECG] [EKG]; Z87.891 Personal history of nicotine dependence
CPT/HCPCS: 93005; 99283

== ENCOUNTER 2020-12-10 00:03 | Emergency (ER) | payer MEDICAID ==
[~2020-12-10] VITALS: Ht 162.6 cm; Wt 55.6 kg
[2020-12-10 00:16] VITALS: BP 135/91
== END 2020-12-10 01:03 | disposition left against medical advice (07) ==
LOC: ED 00:42
DX: K59.00 Constipation, unspecified (principal); Z53.21 Procedure and treatment not carried out due to patient leaving prior to being seen by health care provider